=== PATIENT | male | born 1935 | race Caucasian/White ===

== ENCOUNTER 2017-08-01 12:27 | Emergency (ER) | payer MEDICARE, OTHER ==
[2017-08-01] MEDS ORDERED: DIPHTH,PERTUSS(ACELL),TET VAC 0.5 ML VIAL IM ONE ×2 (12:41→12:47)
--- NOTE | 2017-08-01 12:41 | ERNOTE ---
Upper Extremity HPI - Narrative Date of Service: 08/01/17 - General Extremities Pain Location: thumb: right Time Seen by Provider: 08/01/17 12:40 Source: patient, RN notes reviewed Exam Limitations: no limitations - Immun/Allergies/Home Medications Immunizations: IMMUNIZATION HX Immunizations Up to Date Yes History of Influenza Vaccine No Hx Pneumococcal Vaccination Yes Allergies/Adverse Reactions: Allergies Allergy/AdvReac Type Severity Reaction Status Date / Time No Known Allergies Allergy Verified 08/01/17 12:33 Home Medications: HOME MEDICATIONS Aspirin 81 mg PO DAILY 07/23/15 [Last Taken Unknown] Benazepril HCl 20 mg PO BID 07/23/15 [Last Taken Unknown] Cholecalciferol (Vitamin D3) [Vitamin D] 1,000 unit PO DAILY 07/23/15 [Last Taken Unknown] Hydrochlorothiazide [Hydrodiuril] 25 mg PO DAILY 07/23/15 [Last Taken Unknown] Pravastatin Sodium [Pravachol] 20 mg PO DAILY 07/23/15 [Last Taken Unknown] Allopurinol [Zyloprim] 100 mg PO DAILY #30 tablet 11/24/15 [Last Taken Unknown] Indomethacin [Indocin] 25 mg PO TID #30 cap 11/24/15 [Last Taken Unknown] Amox Tr/Potassium Clavulanate [Augmentin 875-125 Tablet] 875 mg PO Q12H #20 tab 08/01/17 [Last Taken Unknown] - History of Present Illness Narrative: 82 year old male presents to the ED from home by private car with his for a laceration to his right thumb. He cut himself on his table saw while cutting boards at about 1200. He is unsure when he last had a tetanus vaccination. Date (Duration): 08/01/17 Time (Timing): 12:00 Location of Incident: home Associated Symptoms: Denies: tingling, weakness, numbness distally, loss of feeling Other Injuries: Reports: none Prior Treament: Denies: recently seen Review of Systems - Review of Systems Constitutional: Absent: recent illness, fever, malaise EYE: Present: no symptoms reported ENT: Present: no symptoms reported Respiratory: Present: no symptoms reported Cardiology: Present: no symptoms reported Gastrointestinal/Abdominal: Present: no symptoms reported Genitourinary: Present: no symptoms reported Musculoskeletal: Absent: joint pain, joint swelling Skin: Absent: lesions, lumps, change in color Neurological: Absent: weakness, numbness, tingling Endocrine: Present: no symptoms reported Hematologic/Lymphatic: Absent: easy bruising, easy bleeding Psych: Present: no symptoms reported - Patient's Past Medical History Patient History - Medical: Diabetes Type 2 Patient History - Cardiac/Respiratory: Hypertension, Other Patient History - Cancer: No Hx of Cancer Patient History - Surgical Procedures: Coronary Bypass Surgery Patient History - Other: None - Social History Living Situations: spouse Abuse History: No History of abuse Psych History: No pertinent hx - Immunizations Immunizations Up to Date: Yes Hx Pneumococcal Vaccination: Yes History of Influenza Vaccine: No Physical Exam - Physical Exam General Appearance: Present: wd/wn, alert, no apparent distress Head Exam: Present: normal inspection, no evidence of injury Neck: Present: normal inspection, nontender, supple Respiratory: Present: no respiratory distress, no accessory muscle use Cardiovascular/Chest: Present: normal peripheral pulses Extremity Exam: Present: normal except - - Right thumb laceration, normal range of motion, no edema Neurological Exam: Present: alert, oriented, normal mood/affect, no motor/ sensory deficits Skin Exam: Present: normal color, warm/dry ED Progress - Vital Signs Patient's Vital Signs:: I have reviewed the patient's vital signs. Vital Signs: Vital Signs 08/01/17 12:30 Temperature 37.0 C Pulse Rate 59 L Respiratory 12 Rate Blood Pressure 150/72 O2 Sat by Pulse 95 Oximetry - X-Ray X-Ray #1 X-Ray: finger - Right thumb Interpretation: Interp. by me X-ray Comments: Distal phalanx fracture present at base of laceration - Progress/Reassessment Chief Complaint: Laceration Progress:: Improved Procedures Right Distal Volar 1st Digit Anesthesia: 1% Lidocaine Length of Repair/Wound (cm): 4 Wound's Depth/Shape: into muscle, irregular, contused tissue Wound Explored: clean, to base, in bloodless field, no foreign body Wound Intervention: irrigated w/saline, debrided minimal Distal NVT: neuro/vasc intact, no tendon injury Wound Repaired With: sutures Suture Size/Type: 4-0, nylon Number of Sutures: 11 Layer Closure: Simple Deep Layer Suture Size/Type: 4-0 Wound Dressing: sterile dressing applied, splint applied Complications: Pt dillan procedure well Departure Clinical Impression: Thumb laceration Qualifiers: Encounter type: initial encounter Damage to nail status: without damage Foreign body presence: without foreign body Laterality: right Qualified Code(s) : S61.011A - Laceration without foreign body of right thumb without damage to nail, initial encounter Phalanx, distal fracture of finger Qualifiers: Encounter type: initial encounter Finger: thumb Fracture type: open Fracture alignment: nondisplaced Laterality: right Qualified Code(s): S62.524B - Nondisplaced fracture of distal phalanx of right thumb, initial encounter for open fracture - Departure Disposition: Home Follow Up Needed Condition: Good Instructions: Finger Fracture, [id number], Sutured Wound Care, [id number] Additional Instructions: Keep splint and dressing dry and in place until you see orthopedics on Friday Tylenol for pain Referrals: Darren Castillo MD [Staff Physician] - 08/04/17 9:15 am Prescriptions: Amox Tr/Potassium Clavulanate [Augmentin 875-125 Tablet] 875 mg PO Q12H #20 tab
[2017-08-01] MEDS ORDERED: ceFAZolin SODIUM 1 GM VIAL IV ONE (13:39)
[2017-08-01] MEDS ORDERED: ceFAZolin SODIUM 1 GM in DEXTROSE 5 % IN WATER 100 ML IV ONE ×2 (14:00)
[2017-08-01 15:22] VITALS: BP 140/75
== END 2017-08-01 15:15 | disposition home or self-care (01) ==
LOC: ER 12:27
PROC: 0KQC0ZZ Repair Right Hand Muscle, Open Approach (ICD-10-PCS; principal; 2017-08-01)
PROC: 2W3GX1Z Immobilization of Right Thumb using Splint (ICD-10-PCS; 2017-08-01)
DX: S61.011A Laceration without foreign body of right thumb without damage to nail, initial encounter (principal); S62.524B Nondisplaced fracture of distal phalanx of right thumb, initial encounter for open fracture; W29.8XXA Contact with other powered hand tools and household machinery, initial encounter; Y93.H3 Activity, building and construction; Y92.009 Unspecified place in unspecified non-institutional (private) residence as the place of occurrence of the external cause; Z23 Encounter for immunization; E11.9 Type 2 diabetes mellitus without complications; I10 Essential (primary) hypertension